=== PATIENT | male | born 1975 | race Caucasian/White ===

== ENCOUNTER 2018-06-12 08:17 | Outpatient (CLI) | payer OTHER ==
[2018-06-12] MEDS ORDERED: Lidocaine 1% PF 10 ML AMP ONE (09:15)
[2018-06-12] MEDS ORDERED: Iopamidol 300 61% 30 ML VIAL ONE (09:15)
[2018-06-12] MEDS ORDERED: EPINEPHrine 1 MG/ML AMP ONE (09:15)
[2018-06-12] MEDS ORDERED: Gadobenate Dimeglumine 529 MG/1 ML (20ML VIAL) ONE ×2 (09:15→09:55)
[2018-06-12] MEDS ORDERED: Iopamidol 300 61% 50 ML VIAL FS ONE (09:59)
--- NOTE | 2018-06-12 12:13 | RAD ---
RIGHT SHOULDER ARTHROGRAM: HISTORY: Right shoulder pain. DOSE: Fluoroscopy 1.6 minutes. DAP 212 Gy per m2. TECHNIQUE: Informed consent was obtained. The right shoulder was prepped and draped in the usual sterile manner . A 1% Lidocaine solution was used to anesthetized the overlying soft tissues. A 22 gauge spinal ne edle was placed in the right shoulder joint. A total of 7 mL of a mixture of iodinated contrast (Damian olinium), sterile saline, Lidocaine, and epinephrine was injected into the right shoulder joint. IMPRESSION: Successful right shoulder arthrogram. POS: [facility]
--- NOTE | 2018-06-12 12:54 | MRI ---
POST ARTHROGRAM MRI RIGHT SHOULDER PERFORMED WITH CONTRAST ENHANCEMENT: HISTORY: Right shoulder pain. FINDINGS: There are some moderate AC joint hypertrophic changes present. The supraspinatus, as well as infraspinatus, tendons are intact. The subscapularis muscle and tendon are intact, and the biceps tendon is in a normal position within the bicipital groove. There is increased signal change extending into the superior labrum, directly posterior to the biceps tendon insertion. These changes are compatible with a SLAP type tear. The inferior glenohumeral ligament is intact. IMPRESSION: 1. Superior labrum anterior and posterior type tear. The tear appears to extend to near the junctio n of the superior and posterior-superior labrum. 2. Intact appearing rotator cuff. POS: [facility]
== END 2018-06-12 08:18 | disposition home or self-care (01) ==
LOC: RAD 08:17
PROVIDERS: ATTEND Family Medicine
DX: S43.91XD Sprain of unspecified parts of right shoulder girdle, subsequent encounter (principal); S53.491D Other sprain of right elbow, subsequent encounter
CPT/HCPCS: 23350; A9579; J0171; J7050

== ENCOUNTER 2018-06-28 08:20 | Day surgery (SDC) | payer OTHER ==
[2018-06-27 10:34] VITALS: BMI 29.4
[2018-06-28] MEDS ORDERED: Fentanyl 250 MCG/5 ML VIAL ONE (10:05)
[2018-06-28] MEDS ORDERED: Promethazine HCl 25 MG/ML VIAL IM PRN (10:10)
[2018-06-28] MEDS ORDERED: Zolpidem Tartrate 5 MG TAB PO PRN (10:10)
[2018-06-28] MEDS ORDERED: HYDROcodone/Acetaminophen 5/325 mg Tablet PO PRN ×2 (10:10)
[2018-06-28] MEDS ORDERED: Ropivacaine 0.2% 550 ML 550 ML NERVE BLCK SCH (10:10)
[2018-06-28] MEDS ORDERED: traMADol HCl 50 MG TAB PO PRN ×2 (10:10)
[2018-06-28] MEDS ORDERED: Ondansetron PF 4 MG/2 ML Vial IVP PRN (10:10)
[2018-06-28] MEDS ORDERED: Ropivacaine 0.5% HCl/PF (150 MG/30 ML VIAL) ONE (12:08)
[2018-06-28] MEDS ORDERED: Ropivacaine 0.2% HCl/PF (40 MG/20 ML VIAL) ONE (12:08)
[2018-06-28] MEDS ORDERED: Midazolam HCl 2 mg/2 ml Vial ONE (12:25)
[2018-06-28] MEDS ORDERED: Fentanyl 100 MCG/2 ML VIAL ONE (12:26)
[2018-06-28] MEDS ORDERED: Dexamethasone 20 MG/5 ML VIAL ONE (13:08)
[2018-06-28] MEDS ORDERED: PROPOFOL 200 MG/20 ML VIAL ONE (13:08)
[2018-06-28] MEDS ORDERED: ePHEDrine 50 MG/ML VIAL ONE (13:08)
[2018-06-28] MEDS ORDERED: Rocuronium Bromide 10 MG/ML (10ML VIAL) ONE (13:08)
[2018-06-28] MEDS ORDERED: Lidocaine 1% PF 5 ML VIAL ONE (13:08)
[2018-06-28] MEDS ORDERED: PHENYLEPHRINE-NS 100 MCG/ML 10 ML SYRINGE ONE (13:08)
[2018-06-28] MEDS ORDERED: Ondansetron PF 4 MG/2 ML Vial ONE (13:08)
--- NOTE | 2018-06-28 20:05 | OP ---
DATE OF PROCEDURE: 06/28/2018 PREOPERATIVE DIAGNOSES: 1. SLAP tear of the right shoulder. 2. Biceps tendonitis. 3. Impingement syndrome of the right shoulder. POSTOPERATIVE DIAGNOSES: 1. SLAP tear of the right shoulder. 2. Biceps tendonitis. 3. Impingement syndrome of the right shoulder. PROCEDURES PERFORMED: 1. Arthroscopy of the right shoulder with SLAP repair and subacromial decompression. 2. Open biceps tenodesis. ANESTHESIA: General. TECHNIQUE: The patient was given preoperative IV antibiotics, taken to the operating room, placed in supine position. Satisfactory general anesthesia was performed. The patient was then placed in the left lateral decubitus position. All bony prominences were well padded. Right upper extremity was placed in 15 pounds of traction. The right shoulder and upper extremity were sterilely prepped and draped in a usual fashion. The shoulder was then scoped usual posterior portal. The patient was noted to have no arthritis in the shoulder joint. The biceps tendon was still attached to the superior labrum, but the labrum was detached superiorly just anterior and just posterior to the biceps tendon through an anterior incision that was made approximately 2.5 cm in length. The biceps tendon was detached from the labrum and using Arthrex biceps tendon anchor, biceps tenodesis was performed. The labral tear was then repaired using 2.9 PushLock anchors with the FiberWire and 3 anchors were used to repair the labrum. The scope was then placed into the subacromial space and subacromial decompression was performed using a 90-degree ArthroWand to remove the soft tissue from the undersurface of the acromion and shaver was used to remove the inflamed bursa and a job was used to take down undersurface of the acromion to give the shoulder much more room. The instruments were removed. The portals and then incision was closed using 3-0 repeat, sterile dressing was applied. The patient was taken out of traction. He was placed in supine position. He was awakened, extubated, and transferred to recovery room in stable condition. ESTIMATED BLOOD LOSS: None. COMPLICATION: None. DISCHARGE MEDICATIONS: [place] 10 one every 6 hours as needed for pain, #50. The patient was placed in a shoulder immobilizer. He used to use ice over the right shoulder as much as possible. Follow up my office in one week. Job ID: [id number]
== END 2018-06-28 14:27 | disposition home or self-care (01) ==
LOC: SDC 08:20
PROVIDERS: ATTEND Orthopaedic Surgery
PROC: 0LS30ZZ Reposition Right Upper Arm Tendon, Open Approach (ICD-10-PCS; principal; 2018-06-28)
PROC: 0RNJ4ZZ Release Right Shoulder Joint, Percutaneous Endoscopic Approach (ICD-10-PCS; principal; 2018-06-28)
PROC: 0MM14ZZ Reattachment of Right Shoulder Bursa and Ligament, Percutaneous Endoscopic Approach (ICD-10-PCS; principal; 2018-06-28)
DX: S43.431A Superior glenoid labrum lesion of right shoulder, initial encounter (principal); M75.41 Impingement syndrome of right shoulder; M75.21 Bicipital tendinitis, right shoulder; J45.909 Unspecified asthma, uncomplicated; F32.9 Major depressive disorder, single episode, unspecified
CPT/HCPCS: A4306; C1713; J1100; J2001; J2250; J2405; J2704; J2795; J3010; J3490